=== PATIENT | male | born 1960 | race Caucasian/White ===

== ENCOUNTER 2023-04-10 08:09 | Observation (INO) ==
--- NOTE | 2023-03-18 09:10 | History & Physical Report ---
Date of Service March 18, 2023 date of surgery: 04/10/23 Procedure: Right Total Knee Arthroplasty Surgeon: Mateo Rooney, DO Assessment & Plan (1) Arthritis of right knee: Plan: Patient presents for evaluation of chronic right knee pain, has complaints of pain decreased range of motion intermittent swelling and stiffness. He has undergone previous viscosupplementation, cortisone injection as well as oral anti-inflammatories and Tylenol without improvement. X-rays and MRI were reviewed which show moderate to severe degenerative changes to the right knee greatest patellofemoral joint and medial compartment. We discussed options, he has failed conservative measures at this point would like to proceed with a right total knee arthroplasty. Plan will be patient-matched [employer] right total knee replacement, we will plan on overnight stay at the hospital with discharge home with home health physical therapy. Will place on aspirin 81 mg twice a day for 1 month postop, he otherwise has no other questions or concerns The risks and benefits have been discussed including, but not limited to, risk of infection, nerve injury, stiffness, loss of motion, failure to improve, etc. Reasonable outcomes and options of treatment were discussed. An explanation of appropriate alternatives to the procedure that may be advantageous were discussed and their risks and benefits, as well as the risks and benefits of not proceeding with treatment. I offered to answer any additional inquiries concerning the treatment involved. All the patient's questions were answered. The patient is agreeable, understanding of the treatment plan and alternatives, and wishes to proceed with the treatment plan. History of Present Illness Chief Complaint: Right knee pain Primary Care Provider: Javier Pearson MD Braulio is a pleasant 62-year-old male who presented for preop evaluation prior to right total knee arthroplasty. Braulio has a longstanding history of right knee pain which gradually worsened and is now affecting his daily activities including walking standing using stairs. He rates his current pain as a 7 out of 10. He has tried oral anti-inflammatories, Tylenol as well as corticosteroid injection without relief. At this point time is failed conservative measures and wished to proceed a right total knee replacement Allergies Allergy/AdvReac Type Severity Reaction Status Date / Time bee venom protein (honey bee) Allergy Severe ANAPHYLAXIS Verified 10/26/21 15:33 Home Medications Medication Instructions Recorded Confirmed Type albuterol sulfate 90 mcg/actuation 2 puffs inhalation Q6H PRN 03/12/19 10/23/22 History breath activated powder inhaler Shortness Of Breath gabapentin 300 mg capsule 600 mg PO HS 03/12/19 10/23/22 History metoclopramide HCl 10 mg tablet 10 mg PO DAILY PRN stomach pain 03/12/19 10/23/22 History naproxen 500 mg tablet 500 mg PO BID 03/12/19 10/23/22 History tramadol 50 mg tablet 50 mg PO BID PRN Pain 03/12/19 10/23/22 History amitriptyline 50 mg tablet 50 mg PO HS 03/16/19 10/23/22 History torsemide 20 mg tablet 20 mg PO DAILY 03/25/19 10/23/22 History pantoprazole 40 mg tablet,delayed 40 mg PO BID #180 tabs 05/05/19 10/23/22 Rx release amlodipine 5 mg tablet 5 mg PO DAILY #90 tabs 09/19/21 10/23/22 Rx chlorthalidone 25 mg tablet 25 mg PO DAILY 10/26/21 10/23/22 History Past Med/Surg History Medical History Sleep apnea no machine Chronic obstructive pulmonary disease mild Surgical History History of colonoscopy History of herniorrhaphy bilateral inguinal hernia repair History of cholecystectomy Family History Other No family history of adverse response to anesthesia Denies family history of Crohn's disease Colorectal cancer Ulcerative colitis Social History Smoking Status: Former smoker Second Hand Exposure: Yes (hx); Do You Dip or Chew Tobacco: No; Hx Alcohol Use: No Hx Substance Use: No Preferred Language: Faroese Communication Ability: Effective Visual Impairment: Limited Hearing Ability: Use of Hearing Aid 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 Beliefs That Will Affect Care: None marital status: Single Current Living Situation: Significant Other current occupational status: employed Feels Safe at Home: Yes Childhood Exposure to Second-Hand Smoke: Yes caffeine: Yes during the past year weight has: decreased > 10 lbs Dental Care, Regularly: Yes Physical Activity Frequency: 3-4 Times per Week Seatbelt Use: always Assistive Devices: Denture - Upper, Denture - Lower and Hearing Aid - Bilateral Review of Systems Review of Systems: All systems reviewed & are unremarkable except as noted in HPI & below Constitutional: no fever, no chills and no sweats Respiratory: no cough and no dyspnea Cardiovascular: no chest pain, no dyspnea and no orthopnea Gastrointestinal: no abdominal pain, no nausea and no vomiting Musculoskeletal: as per Subjective / HPI Physical Exam Constitutional: WD/WN, vitals as above no acute distress Respiratory: normal respiratory effort, lungs clear to auscultation no respiratory distress, no labored breathing and does not use accessory muscles Cardiovascular: RRR, no murmur, no edema Gastrointestinal (Abdomen): normal bowel sounds, soft, nontender, no hepatosplenomegaly Musculoskeletal: Knee: + knee abnormal to inspection (RIGHT KNEE), + effusion (+1 effusion), + limited ROM of knee (ROM 0/3/110), + knee ROM with crepitation, + joint line tenderness (medial joint line) and + Karissa's sign positive; no deformity, no skin erythema, no ecchymosis, no valgus laxity, no varus laxity, anterior drawer test negative, Saqib's sign negative and pivot shift test negative Results & Data Results & Data Diagnostic Findings Right Knee X-ray: Right knee series showing advanced degenerative changes to the right knee, narrowing of the medial compartment and patello-femoral joint with patellar spurring noted, findings showing joint space narrowing of the medial compartment and patello-femoral joint, osteophyte formation and subchondral sclerosis noted. overall varus alignment. no acute bony pathology noted.
--- NOTE | 2023-03-21 14:41 | PAT Medication Instructions ---
Medication Instructions Date of Service March 21, 2023 Home Medications albuterol sulfate 90 mcg/actuation breath activated powder inhaler 2 puffs inhalation Q6H PRN gabapentin 300 mg capsule 900 mg PO QPM metoclopramide HCl 10 mg tablet 10 mg PO QD naproxen 500 mg tablet 500 mg PO BID tramadol 50 mg tablet 50 mg PO BID amitriptyline 50 mg tablet 50 mg PO HS chlorthalidone 25 mg tablet 25 mg PO QAM cholecalciferol (vitamin D3) 25 mcg (1,000 unit) capsule (Vitamin D3) 25 mcg PO QAM epinephrine 0.3 mg/0.3 mL injection, auto-injector 0.3 mg IM UD PRN omeprazole 20 mg tablet,delayed release 20 mg PO QAM tamsulosin 0.4 mg capsule 0.4 mg PO UD PRN Continue as directed metoclopramide HCl 10 mg tablet 10 mg PO QD tamsulosin 0.4 mg capsule 0.4 mg PO UD PRN(if needed) epinephrine 0.3 mg/0.3 mL injection, auto-injector 0.3 mg IM UD PRN(if needed) ASK your surgeon for instructions naproxen 500 mg tablet 500 mg PO BID DO NOT take the morning of surgery chlorthalidone 25 mg tablet 25 mg PO QAM cholecalciferol (vitamin D3) 25 mcg (1,000 unit) capsule (Vitamin D3) 25 mcg PO QAM Take morning of surgery With a small sip of water, OTHERWISE NOTHING TO EAT OR DRINK AFTER MIDNIGHT: albuterol sulfate 90 mcg/actuation breath activated powder inhaler 2 puffs inhalation Q6H PRN(use if needed; please bring with you to hospital day of surgery if possible) tramadol 50 mg tablet 50 mg PO BID omeprazole 20 mg tablet,delayed release 20 mg PO QAM Take evening before surgery albuterol sulfate 90 mcg/actuation breath activated powder inhaler 2 puffs inhalation Q6H PRN(if needed) gabapentin 300 mg capsule 900 mg PO QPM tramadol 50 mg tablet 50 mg PO BID amitriptyline 50 mg tablet 50 mg PO HS Other Notes If you have any questions please call us at [phone] or [phone] or [phone] or [phone]
--- NOTE | 2023-03-25 08:23 | Anesthesiology Consultation ---
Date of Service March 25, 2023 Assessment & Plan (1) Encounter for pre-operative examination: - PCP office visit 03/06/23 [facility]: "...got Covid 02/15 and was improving but now has cough and increased mucus...gets short of breath from the cough...bronchitis- prednisone...azithromycin..." - cardiology office visit 09/24/22: "...follow up for dyspnea...dyspnea has improved...edema and BP improved...ascending aortic aneurysm has been stable on CT. No other significant cardiac hx. Edema and BP have improved...no changes today. RTC in 1 year..." - Outpatient joint assessment: Patient is currently scheduled for inpatient pathway. If re-evaluated and patient/surgeon requests outpatient pathway, patient is not recommended candidate for outpatient joint program from anesthesia standpoint. Chart Review Chart Review: Acceptable Risk for Surgery and Patient seen in Pre Admission Testing Teaching & Discussion Pre-Anesthesia Teaching/Discussion Notes: Instructed NPO after midnight before surgery, except medications with 15 cc of water. Medication instructions provided according to the PAT guidelines. History Surgery Operation Date: 04/10/23 11:00 Proposed Procedures p Right Total Knee Arthroplasty - Mateo Rooney DO Height/Weight Height: 5 ft 8 in Weight: 121.4 kg Allergies Allergy/AdvReac Type Severity Reaction Status Date / Time bee venom protein (honey bee) Allergy Severe ANAPHYLAXIS Verified 03/20/23 15:46 Medications Home Medications Medication Instructions Recorded Confirmed Last Taken albuterol sulfate 90 mcg/actuation 2 puffs inhalation Q6H PRN copd 03/12/19 03/20/23 01/20/19 breath activated powder inhaler gabapentin 300 mg capsule 900 mg PO QPM 03/12/19 03/20/23 07/13/20 metoclopramide HCl 10 mg tablet 10 mg PO QDD gerd 03/12/19 03/20/23 03/24/19 naproxen 500 mg tablet 500 mg PO BID 03/12/19 03/20/23 07/14/20 08:00 tramadol 50 mg tablet 50 mg PO BID Pain 03/12/19 03/20/23 07/14/20 08:00 amitriptyline 50 mg tablet 50 mg PO HS 03/16/19 03/20/23 07/13/20 chlorthalidone 25 mg tablet 25 mg PO QAM 10/26/21 03/20/23 Unknown cholecalciferol (vitamin D3) 25 25 mcg PO QAM 03/20/23 03/20/23 Unknown mcg (1,000 unit) capsule (Vitamin D3) epinephrine 0.3 mg/0.3 mL 0.3 mg IM UD PRN bee stings 03/20/23 03/20/23 Unknown injection, auto-injector omeprazole 20 mg tablet,delayed 20 mg PO QAM 03/20/23 03/20/23 Unknown release tamsulosin 0.4 mg capsule 0.4 mg PO UD PRN Urinary Retention 03/20/23 03/20/23 Unknown Past Medical History Medical History (Updated 03/25/23 @ 08:45 by Mariana Ho PA-C) Aortic aneurysm monitoring. Chronic obstructive pulmonary disease mild-last rescue inhaler use 1 yr ago GERD (gastroesophageal reflux disease) controlled, stable per pt History of anesthesia reaction after gallbladder surgery, hard time peeing in recovery, once able to go - could not stop flow-denies requiring catheterization History of COVID-2020 & Jan 19 2023 + home - headache, coughing, cold s/s. denies hospitalization-residual occasional cough productive of yellow-green sputum--follows with PCP History of Lyme disease several yrs ago-denies residual symptoms History of shingles left facial-Nov or Dec 2022. lesions healed. Scarring remains. HTN (hypertension) controlled, stable per pt Peripheral neuropathy hands and feet RLS (restless legs syndrome) Sleep apnea can't tolerate cpap SOB (shortness of breath) on exertion stairs-ongoing since having COVID in 2020-notes some gradual improvement Urinary frequency ongoing / nothing new. Patient denies h/o stroke, seizures, heart attack, heart failure, DM, blood clots/DVTs or blood transfusions. Exercise / Class Metabolic Activity II 4-5 Yardwork/Stairs/Walk up hill (SOB with 1 FOS, ongoing since 2020 COVID illness-notes improvement since onset-denies chest discomfort) Past Family History Family History Other No family history of adverse response to anesthesia Denies family history of Crohn's disease Colorectal cancer Ulcerative colitis Past Surgical History Surgical History History of cholecystectomy History of colonoscopy History of herniorrhaphy bilateral inguinal hernia repair Past Anesthesia History No Family Hx of Anesthesia Complications and Other (post-op urinary retention) History of PONV No Hx of PONV and No Hx of Motion Sickness Social History Smoking Status: Former smoker tobacco type: cigarettes Do You Dip or Chew Tobacco: No Smoking End Date: 20 + yr ago Hx Alcohol Use: No Hx Substance Use: No substance use type: does not use Review of Systems Patient denies chest pain, fever, chills, wheezing, or palpitations. Physical Exam Vital Signs Vitals BP 135/90 P 76 TEMP 98.2 SP02 96% on RA RESP 17 Physical Patient resting comfortably in chair in no acute distress, alert and oriented, responding appropriately throughout visit Full cervical extension range of motion without pain TMD < 3 finger breadths Mallampati Score 3 Dentition: edentulous-full upper and lower dentures Lungs: normal respiratory effort. Good air movement, clear throughout to auscul tation, no adventitious breath sounds Cardiac: regular rate and rhythm, no murmurs noted Carotid arteries: negative bruit bilat Lab Results Anesthesia Preop Results Results Anesthesia Widget: WBC 10.12 K/ul (4.8-10.8) 03/25/23 Hgb 15.8 g/dl (14.0-18.0) 03/25/23 Hct 45.3 % (42.0-52.0) 03/25/23 Plt 145 K/uL (130-400) 03/25/23 Na 136 mmol/L (136-145) 03/25/23 K 3.7 mmol/L (3.5-5.1) 03/25/23 Cl 99 mmol/L (98-107) 03/25/23 CO2 31 mmol/L (21-32) 03/25/23 BUN 23 mg/dl (6-23) 03/25/23 Creat 0.93 mg/dl (0.6-1.4) 03/25/23 Glucose Level 113 mg/dl (70-99(Fasting)) H 03/25/23 PT 10.3 Seconds (9.0-12.0) 03/25/23 PTT 28 Seconds (21-31) 03/25/23 INR 0.9 (0.9-1.1) 03/25/23 HA1c 6.0 % (4.5-5.6) H 03/25/23 Urine Color Yellow 03/25/23 Urine Appearance Clear (Clear) 03/25/23 Urine pH 5.0 (4.5-7.5) 03/25/23 Urine Specific [place] 1.019 (1.000-1.030) 03/25/23 Urine Protein Negative (Negative) 03/25/23 Urine Glucose (UA) Negative (Negative) 03/25/23 Urine Ketones Negative (Negative) 03/25/23 Urine Blood Negative (Negative) 03/25/23 Urine Nitrite Negative (Negative) 03/25/23 Urine Bilirubin Negative (Negative) 03/25/23 Urine Urobilinogen Negative (Negative) 03/25/23 Urine Leukocyte Esterase Negative (Negative) 03/25/23 Blood Type B Negative 03/25/23 Antibody Screen NEGATIVE 03/25/23 Testing Electrocardiogram Date: 09/20/22 NSR, rate 71 bpm Chest X-Ray Date: 03/25/23 No acute cardiopulmonary findings. Echocardiogram Date: 09/02/20 EF > 60% No significant valvular pathology Stress Test Date: 07/20/21 Exercise MPHR 94% METS 6 Negative test EF 55-60% No LV regional wall motion abnormalities Severe cLVH No significant valvular abnormalities
[~2023-04-10 08:09] MED LIST: BUPIVACAINE 0.25% PF 30 ML VIAL ONE; BUPIVACAINE 0.5 % 5 MG/1 ML PF 10ML VIAL ONE; DEXAMETHASONE SOD INJ 4 MG/ML VIAL ONE; General Order Problem(s) SCH; LIDOCAINE 2% 2 ML VIAL/AMP(20MG/ML) INFIL ONE; ONDANSETRON INJ 2 MG/ML 2 ML VIAL ONE; PROPOFOL IV EMULSION 10 MG/ML 20 ML VIAL IV ONE
[2023-04-10] MEDS: LR 500ML BOLUS, THEN 15ML/HR IV SCH (08:30)
[2023-04-10] MEDS ORDERED: PROPOFOL IV EMULSION 10 MG/ML 100 ML VIAL IV ONE (08:33)
[2023-04-10] MEDS ORDERED: fentaNYL citrate PF 100 MCG/2 ML VIAL ONE (08:34)
[2023-04-10] MEDS ORDERED: MIDAZOLAM HCL 1 MG/ML 2ML VIAL ONE (08:34)
--- NOTE | 2023-04-10 08:42 | History & Physical Bridge Note ---
Date of Service April 10, 2023 History & Physical Bridge Note I have examined the patient, reviewed the History & Physical and in the interval since the performance of the History & Physical I have noted the following changes of clinical significance: no changes noted
[2023-04-10] MEDS: LR 60ML/HR IV SCH ×2 (08:49)
[2023-04-10] MEDS: ACETAMINOPHEN 500 MG TAB PO SCH ×2 (08:50→15:14)
[2023-04-10] MEDS: GABAPENTIN 300 MG CAP PO SCH ×2 (08:50→19:45)
[2023-04-10] MEDS: FAMOTIDINE 20 MG TAB PO SCH (08:50)
[2023-04-10] MEDS: METOCLOPRAMIDE HCL 10 MG TABLET PO SCH (08:50)
[2023-04-10] MEDS: CeleBREX 200 MG CAP PO SCH (08:50)
[2023-04-10] MEDS ORDERED: ATROPINE SULFATE 0.1 MG/ML 10ML SYR IV PRN (09:23)
[2023-04-10] MEDS ORDERED: ePHEDrine sulfate 50 MG/ML AMP IV PRN (09:23)
[2023-04-10] MEDS ORDERED: fentaNYL citrate PF 100 MCG/2 ML VIAL IV PRN (09:23)
[2023-04-10] MEDS: TRANEXAMIC ACID 1,000 MG **IV Pre-op IV SCH (09:41)
--- OUTSIDE RECORDS SUMMARY | 2023-04-10 10:05 | External Medical Summary | Summary of Care ---
Author Name Unknown Organization [facility] Address [address] [place] [address] Phone [phone] Care Team Providers Care Project Leader Name Role Phone Javier Pearson MD Primary Care Provider Encounter Details Date Type Department Care Team (Late st Contact Info) Description 03/15/2023 Telephone Gastroenterology, [facility] [address] [facility] [place] [address] Services, Scheduling [address] [place] [address] Allergies Active Allergy Reactions Criticality Noted Date Comments Bee Venom 04/14/2014 documented as of this encounter (statuses as of 03/26/2023) Medications Medication Sig Dispensed Refills Start Date End Date Status EPI E-Z PEN [place] 1:1000 IJIndications:Toxic effect of venom(989.5) DIRECTED 2 Pen 1 08/21/2011 Active torsemide (DEMADEX) 20 MG TabletIndications:P edal edema take 1 tablet by mouth once daily if needed 90 Tab 1 04/03/2018 Active amitriptyline (ELAVIL) 50 MG TabletIndications:L ow back pain radiating to both legs,Cervicalgia,Re stless legs Take 1 Tab by mouth at bedtime. 90 Tab 1 08/29/2018 Active traMADol (ULTRAM) 50 MG TabletIndications:L ow back pain radiating to both legs Take 1 Tab by mouth every 6 hours as needed for Pain. 60 Tab 0 08/29/2018 Active gabapentin (NEURONTIN) 300 MG CapsuleIndications: Restless legs One or two capsules at bedtime 180 Cap 1 08/29/2018 Active Additional Information Patient taking differently: 900 mg a day, Reported on 08/08/2022 metoclopramide (REGLAN) 10 MG TabletIndications:G astroesophageal reflux disease with esophagitis take 1 tablet by mouth once daily BEFORE SUPPER 90 Tab 1 08/29/2018 Active naproxen (NAPROSYN) 500 MG TabletIndications:L ow back pain radiating to both legs Take 1 Tab by mouth 2 times a day as needed for Pain. With food 180 Tab 1 08/29/2018 Active Chlorthalidone 25 MG Oral Tablet (Hygroton) Take 1 Tablet by mouth in the morning. 0 Active Meclizine HCl 12.5 MG Oral Tablet (Antivert) Take 1 Tablet by mouth 3 times a day as needed. 0 10/28/2022 Active Promethazine HCl 25 MG Oral Tablet (Phenergan)Indicati ons:Herpes zoster with complication Take 1 Tablet by mouth every 6 hours as needed for Nausea. or vomiting 12 Tablet 0 11/01/2022 Active Omeprazole 20 MG Oral Capsule Delayed Release (PriLOSEC) Take 1 Capsule by mouth in the morning. 30 Capsule 3 01/07/2023 Active documented as of this encounter (statuses as of 03/26/2023) Active Problems Problem Noted Date Diagnosed Date Arthritis of knee, right 03/06/2023 BMI 37.0-37.9, adult 10/12/2021 Overview: 254 Metabolic syndrome 08/08/2020 Overview: [id number] 6.4/134 Polyneuropathy in other diseases classified else where 07/13/2020 COPD, moderate 12/07/2010 Dyslipidemia, goal LDL below 130 11/30/2010 ADVANCE DIRECTIVE INFORMATION 09/13/2006 Overview: No, Advance Directive brochure offered , patient declined. erectile dysfunction 06/26/2004 FAM HX-DIABETES MELLITUS 01/12/2002 MEDICATION USE AGREEMENT Gastroesophageal reflux dise ase with esophagitis without hemorrhage Low back pain radiating to both legs documented as of this encounter (statuses as of 03/26/2023) Resolved Problems Problem Noted Date Diagnosed Date Resolved Date Low back pain radiating to both legs 02/04/2012 07/17/2017 OBESITY, BMI 30-34 (SEE ACTUAL BMI) 05/26/2009 12/30/2013 Overview: Per Obesity Taxonomy Dyslipidemia, goal to be determined 09/27/2006 11/30/2010 COPD, severity to be determined 07/24/2000 12/07/2010 Chronic rhinitis 07/24/2000 07/17/2017 OBESITY, UNSPECIFIED 07/24/2000 010 Overview: Per Obesity Taxonomy BMI 35.0-35.9,adult 07/13/19 16 BMI 39.0-39.9,adult 02/15/20 17 Overview: Per Obesity protocol #1 Cough 07/17/2017 Morbid obesity 07/25/2017 documented as of this encounter (statuses as of 03/26/2023) Immunizations Name Administration Dates Next Due COVID-19, mRNA, LNP-s, PF, B ooster, 100mcg/0.5mg (Moderna) 03/13/2021,09/08/2020,08/08/2020 Pneumococcal Conjugate Vacci ne, 20-valent ([id number]) 02/07/2022 Pneumococcal Polysaccharide PPV23 (Pneumovax) 12/16/2012 Seasonal Influenza Virus Vac cine, Unspecified Formulation 11/02/2017 Seasonal Influenza, PF, 6 M & above, IM , (FluLaval or Fluzone) 03/06/2023,01/02/2022,02/08/2021,01/05,01/29/2018,01/16/2017 Seasonal Influenza, Quadriva lent, No Preserve, IM 11/16/2019,02/01/2016,01/12/2015 Seasonal Influenza, Split, I IV3, With Preserve, Inj 01/04/2014,12/16/2012,01/17/2012,11/30 TDAP (age 10 and older)(Boostrix) 07/30/2018 TDAP (age 11 and older)(Adacel) 10/02/2007 documented as of this encounter Social History Tobacco Use Types Packs/Day Years Used Date Smoking Tobacco: Former Cigarettes Q uit: 03/04/2004 Smokeless Tobacco: Never Comments:quit 11 yr ago Alcohol Use Standard Drinks/Week Comments No 0 (1 standard drink = 0.6 oz pur e alcohol) has been sober 10yr PHQ-2 Answer Date Recorded PHQ-2 Score 0 07/30/2018 Sex and Gender Information Value Date Recorded Sex Assigned at Not on file Gender Identity Not on file Sexual Orientation Not on file Job Start Date Occupation Industry Not on file Not on file Not on file documented as of this encounter Miscellaneous Notes * Telephone Encounter - Yudelka Dick OSA - 03/15/2023 10:49 AM EST Called patient to make aware appt cancelled on 04/22 and with Brianna Mota patient will need to be rescheduled. Thank you documented in this encounter Plan of Treatment Upcoming Encounters Date Type Department Care Team (Late st Contact Info) Description 07/04/2023 2:00 PM EDT Office Visit Gastroenterology, [facility] [address] [place] [address] Brianna Mota CRNP [address] [place] [id number] 10/23/2023 3:40 PM EDT Office Visit Family Medicine [address] [place] [phone] Cinthya Roberts MD [address] [place] [address] [place] [address] Scheduled Procedures Name Priority Associated Diagnoses Date/Ti me COLONOSCOPY FLEXIBLE PROXIMAL DIAGNOSTIC Recall Colon cancer screening Health Maintenance Due Date Last Done Comments HIV Screening 09/01/1974 Alpha-1 Antitrypsin 09/01/1977 Cologuard 09/01/2004 Fecal Occult Blood Test 09/01/2004 Sigmoidoscopy 09/01/2004 Zoster Vaccines (1 of 2) 09/01/2009 Depression Screening 07/31/2019 07/30/2018 COVID-19 Vaccine ( season) 2022 03/13/2021, 09/08/2020, 08/08/2020 Lipid Panel 02/13/2024 02/12/2019, 01/02, 12/26/2012, Additional history exists O2 ASSESSMENT COMPLETED IN PAST YEAR FOR COPD 03/06/2024 03/06/2023 Diabetes Screening 10/27/2025 10/27/2022, 1 04/10/2021, 01/21/2022, Additional history exists Colonoscopy 12/31/2026 12/31/2016, 12/04, 04/23/2011 Colorectal Cancer Screening 12/31/2026 DTaP,Tdap,and Td Vaccines (3 - Td or Tdap) 07/30/2028 07/30/2018, 10/02/2007 Pneumococcal Vaccine: Pediatrics (0 to 5 Years) and At-Risk Patients (6 to 64 Years) Completed 02/07/2022, 12/16/2012 Influenza Vaccine (FLU shot) Completed 05/2023, 01/02/2022, 02/08/2021, Additional history exists GARDASIL-HPV IMMUNIZATION SERIES Aged Out No longer eligible based on patient's age to complete this topic Hepatitis B Aged Out No longer eligi ble based on patient's age to complete this topic MENINGOCOCCAL (MENACTRA/MENVEO) Aged Out No longer eligible based on patient's age to complete this topic documented as of this encounter Medical Devices Not on filedocumented as of this encounter Advance Directives Latest Code Status on File Code Status Date Activated Date Inactivated Comments Full Code 03/20/2019 10:15 AM 03/20/2019 3:09 PM This order reflects the patients wishes and were consensually agreed upon. Question Answer Comments Discussion of Advance Directives occurred with: Patient Does the patient have a Living Will? No Does the patient have Health Care Power of Equine Internship? No Care Teams Project Leader Relationship Specialty Start Date End Date Javier Pearson MD [address] [place] [address] [place] [id number] PCP - General Family Medicine 07/17/17 documented as of this encounter
[2023-04-10] MEDS: ORTHO JOINT ANESTHETIC ONE (10:33)
[2023-04-10] MEDS: TRANEXAMIC ACID 1,000 MG **IV Intra-op IV SCH (11:06)
--- NOTE | 2023-04-10 11:06 | Operative Report ---
Post Operative Report Pre & Post Diagnosis Operation Date: 04/10/23 10:00 Pre-Op Diagnosis: Osteoarthritis Knee Right Post-Op Diagnosis: Osteoarthritis Knee Right I identified the patient and participated in the time-out.: Yes Procedure Operation Date: 04/10/23 10:00 Actual Procedures p Right Total Knee Arthroplasty utilizing Hernandez & NephInfoharmoni jourtaylor 2 patient- matched total knee arthroplasty size femur 6 tibia 5 poly 13 patella 29 yaakov Rooney DO Surgeon Mateo Rooney DO Mixed Animal Veterinarian David YANG Estimated Blood Loss 5 Findings Consistent with Post-Op Diagnosis Patient presents with severe end-stage tricompartmental DJD of the right knee nonresponse to conservative management patient has varus alignment subchondral sclerosis marginal osteophytes moderate to large effusion eburnated [id number] with subchondral cystic changes Specimens Bone card Drains Medium bore Hemovac Anesthesia Type MAC Spinal Regional Complications none Disposition Accompanied Patient To Recovery: No Disposition: Recovery Room Indications Patient presents severe end-stage DJD having failed attempts at conservative management occluding physical therapy anti-inflammatories relative rest activity modification corticosteroid injection viscosupplementation above intraoperative findings were noted Description of Procedure After proper prepping and draping of the Right lower extremity anterior midline incision was made over the region of the extensor extensor mechanism after meticulous hemostasis was obtained and maintained in subcutaneous tissues a medial parapatellar incision was made The patella was subluxed lateralward the medial lateral gutter were cleaned from any hypertrophic synovitis and scar tissue of the distal femoral block was placed and the distal femoral osteotomy cut was made subsequently the chamfers anterior and posterior osteotomy cuts were made utilizing the 4-in-1 block the tibia was subsequently subluxed anteriorward medial and ateral meniscal remnants were excised in their entirety remnants of the anterior and posterior cruciate ligaments were excised in their entirety excellent exposure of the proximal tibia was obtained the tibial osteotomy guide was placed on the proximal tibial osteotomy cut was made once again the knee was irrigated with copious amounts of sterile saline solution the patella was subsequently everted lateralward thickened scar tissue around the patella was removed the patella was subsequently cut utilizing a freehand techn ique and was drilled prepared for final preparation and placement of patella socially flexion-extension gaps were checked and the equal and symmetric trials were placed to the appropriate femoral and tibial trials with poly-spacer being placed for equal flexion and extension gaps and full range of motion including extension to 0 and flexion to 140 the trial components after having been taken to recovery range of motion was subsequently removed meticulous hemostasis was obtained and maintained subsequently a knee block injection of joint cocktail including ropivacaine 0.5% 150 mg. Bupivacaine 0.5% epinephrine 1-200,030 mL's toradol 30 mg dexamethasone 4 mg ketamine 10 mg clonidine 100 micrograms normal saline solution 30 mg was infiltrated into the soft tissues of the posterior knee medial lateral gutters and periosteal synovium special attention was paid to protect neurovascular structures at all times subsequently trial components having been removed the knee was irrigated with sterile saline solution. debris was removed the proximal tibia was subsequently prepared and was made ready for the placement of the tibial component tibial component was also cemented and tamped into position the femoral component was subsequently placed and cemented in the position the patellar component was subsequently cemented in position because hemostasis once again obtained and maintained wound having been thoroughly irrigated with debridement and debridement lavage was performed as well as a medial parapatellar incision closed with #1 Vicryl in interrupted fashion subcutaneous was closed with #2 Vicryl skin was closed with skin clips. PA-C was necessary for prepping and drapping as well as wound closure of deep fascia Sub cutaneous tissue and skin and was necessary for the case. A sterile compressive dressing was placed patient was taken to recovery in stable condition of report dictated by Toribio I attest to the content of the Intraoperative Record and any orders documented therein. Any exceptions are noted below.Due to the complex nature of the procedure, the entire surgery was performed with the operational assistance of David YANG. The office assistant, under direct supervision, was involved in the actual performance of all aspects of the surgical procedure including hemostasis, tissue retraction and incision, instrument management, patient positioning, and wound closure. I attest to the content of the Intraoperative Record and any orders documented therein. Any exceptions are noted below.
[2023-04-10] MEDS: ROPIV 0.5% 246mg, Ketorolac 30mg, EPINEPHrine 0.5mg in NSS INFIL SCH (11:07)
[2023-04-10] MEDS ORDERED: PROPOFOL IV EMULSION 10 MG/ML 20 ML VIAL IV ONE (11:23)
[2023-04-10] MEDS ORDERED: ONDANSETRON INJ 2 MG/ML 2 ML VIAL ONE (11:24)
[2023-04-10] MEDS: ONDANSETRON INJ 2 MG/ML 2 ML VIAL IV PRN (12:09)
--- NOTE | 2023-04-10 12:15 | Anesthesiology Progress Note ---
Date of Service April 10, 2023 Anesthesia Post Procedure Vital Signs Vital Signs: Temp Pulse Resp BP Pulse Ox O2 Del Method O2 Flow Rate 04/10/23 12:10 78 17 123/89 94 Oxymask 0 04/10/23 12:00 85 17 103/80 94 Oxymask 2 04/10/23 11:50 77 12 118/76 94 Oxymask 8 04/10/23 11:44 36.2 C L 81 14 113/76 94 Oxymask 8 04/10/23 08:25 36.8 C 87 20 129/104 H 93 Room Air Pain Intensity Right Knee: Pain Intensity: 5 Transfer of Care Handoff Completed per policy Notes Mental Status: alert / awake / arousable and participated in evaluation Patient Amnestic to Procedure: Yes Nausea / Vomiting: adequately controlled Pain: adequately controlled Airway Patency, RR, SpO2: stable & adequate BP & HR: stable & adequate Hydration State: stable & adequate Neuraxial Anesthesia: was administered and sensory block is resolving Anesthetic Complications: no major complications apparent and Pt Satisfied with anesthetic care
--- NOTE | 2023-04-10 12:18 | XRay Report ---
XR knee RT 1 or 2V routine HISTORY: 62 years-old Male Surgical Post Op right knee arthroplasty COMPARISON: None TECHNIQUE: 2 views of the right knee FINDINGS: Total joint arthroplasty with patellar resurfacing. A surgical drainage catheter is in place along wi th expected postoperative soft tissue swelling with deep tissue air. No acute fracture, dislocation o r unexpected opaque foreign body. IMPRESSION: Total joint arthroplasty with expected postoperative changes. ACT 112: Negative or not required by law. The above report was generated using voice recognition software. It may contain grammatical, syntax o r spelling errors. Electronically signed by: Dhiraj Rutherford M.D. 04/10/2023 12:17 PM
[2023-04-10] MEDS ORDERED: bisacodyL 10 MG SUPP PR PRN (13:20)
[2023-04-10] MEDS ORDERED: diphenhydrAMINE 50 MG/ML VIAL IV PRN (13:20)
[2023-04-10] MEDS ORDERED: METOCLOPRAMIDE HCL INJ 5 MG/ML 2 ML VIAL IV PRN (13:20)
[2023-04-10] MEDS ORDERED: MAGNESIUM HYDROXIDE SUSP 30 ML UDC PO PRN (13:20)
[2023-04-10] MEDS ORDERED: NALOXONE HCL 0.4 MG/1 ML VIAL/CARP IV PRN (13:20)
[2023-04-10] MEDS ORDERED: TAMSULOSIN HCL 0.4 MG CAP PO PRN (13:20)
[2023-04-10] MEDS ORDERED: ONDANSETRON INJ 2 MG/ML 2 ML VIAL IV PRN (13:20)
[2023-04-10] MEDS ORDERED: HYDROmorphone INJ 0.5 MG/0.5 ML SYR IV PRN (13:20)
[2023-04-10] MEDS: SODIUM CHLORIDE 0.9% 1,000 ML IV SCH (13:41)
[2023-04-10] MEDS ORDERED: ALBUTEROL HFA 8 GM INHALER INH PRN (13:42)
[2023-04-10] MEDS: oxyCODONE HCL IR 5 MG TAB (IMMEDIATE RELEASE) PO PRN (15:14)
[2023-04-10] MEDS: ceFAZolin 2000MG 2,000 MG/15 ML SYR IV SCH (17:27)
[2023-04-10] MEDS: ASPIRIN 81 MG ECTAB PO SCH (19:44)
[2023-04-10] MEDS: DOCUSATE SODIUM 100 MG CAP PO SCH (19:45)
[2023-04-10] MEDS: SENNA 8.6 MG TAB PO SCH (19:46)
[2023-04-11 06:56] LABS: Hemoglobin 14.2 g/dl (14.0-18.0); Mean Corpuscular Hemoglobin 29.1 pg (25.0-34.0); Mean Corpuscular Hgb Conc 33.8 g/dL (32.0-36.0); Mean Corpuscular Volume 86.1 fL (80.0-100.0); Mean Platelet Volume 9.8 fL (9.4-12.4); Platelet Count 229 K/uL (130-400); RDW Coefficient of Variation 13.6 % (11.5-14.5); RDW Standard Deviation 42.3 fL (36.4-46.3); Red Blood Count 4.88 M/uL (4.70-6.10); White Blood Count 13.61 K/ul (4.8-10.8)
--- NOTE | 2023-04-11 06:56 | Orthopedic Progress Note ---
Date of Service April 11, 2023 Assessment & Plan (1) History of total right knee replacement: Plan: POD #1 s/p Right TKA pt/ot dvt proph with SUSAN/SCD/ASA plan for d/c home with HHPT when stable Admission and Anticipated Discharge Date Admission Date: April 10, 2023 Subjective POD #1 s/p Right TKA Review of Systems Constitutional: no fever, no chills and no sweats Respiratory: no cough and no dyspnea Cardiovascular: no chest pain and no dyspnea Gastrointestinal: no abdominal pain, no nausea and no vomiting Physical Exam Physical Exam: Vital Signs Temp 37.2 C 04/11/23 04:23 Pulse 82 04/11/23 04:23 Resp 18 04/11/23 04:23 BP 134/76 04/11/23 04:23 Pulse Ox 96 04/11/23 04:23 O2 Del Method Room Air 04/11/23 04:23 O2 Flow Rate 2 04/10/23 15:22 Intake & Output 04/10/23 04/10/23 04/11/23 06:59 18:59 06:59 Intake Total 2217.5 / 3172.5 955 / 3172.5 Output Total 215 / 2415 2200 / 2415 Balance 2002.5 / 757.5 -1245 / 757.5 Weight 117.9 kg Intake: IV 317.5 / 1272.5 955 / 1272.5 Lactated Ringe r's 1,000 ml @ 15 0 / 0 mls/hr IV .Q24 H EVELIO Rx#: [id number] Sodium Chlorid e 0.9% 1,000 ml @ 45 / 1000 955 / 1000 100 mls/hr IV .Q10H EVELIO Rx#: [id number] Tranexamic Aci d / 0.7% NaCl 1, 200 / 200 000 mg In 100 ml @ 600 mls/hr IV TODAY@0600 EVELIO Rx#:[id number] ceFAZolin 3000 MG 72.5 ml @ 130 72.5 / 72.5 mls/hr IV PREO P EVELIO Rx#: [id number] IV Perioperative 1700 / 1700 Oral 200 / 200 Output: Urine 100 / 2300 2200 / 2300 Estimated Blood Loss 5 / 5 Drain Output 110 / 110 Right Knee Hem ovac #1 110 / 110 Other: Weight Measureme nt Method Standing Scale Musculoskeletal: Right Leg: NVDI, calf SNT, negative reji sign. DP palpable, able to wiggle toes/ankle movement without difficulty. dressing clean dry and intact. Results & Data Vital Signs (Past 12 Hours) Vital Signs Temp Pulse Resp BP Pulse Ox O2 Del Method 04/11/23 04:23 37.2 C 82 18 134/76 96 Room Air 04/10/23 22:40 36.8 C 77 18 134/83 96 Room Air 04/10/23 19:45 Room Air 04/10/23 19:27 36.8 C 75 18 152/102 H 96 Room Air Laboratory Results Impressions Knee X-Ray 04/10/23 11:48 XR knee RT 1 or 2V routine HISTORY: 62 years-old Male Surgical Post Op right knee arthroplasty COMPARISON: None TECHNIQUE: 2 views of the right knee FINDINGS: Total joint arthroplasty with patellar resurfacing. A surgical drainage catheter is in place along with expected postoperative soft tissue swelling with deep tissue air. No acute fracture, dislocation or unexpected opaque foreign body. IMPRESSION: Total joint arthroplasty with expected postoperative changes. ACT 112: Negative or not required by law. The above report was generated using voice recognition software. It may contain grammatical, syntax or spelling errors. Electronically signed by: Dhiraj Rutherford M.D. 04/10/2023 12:17 PM
[2023-04-11 07:05] LABS: BUN Creatinine Ratio 16.8 (10-20); Calcium 8.2 mg/dl (8.6-10.3); Creatinine Clr Calc Pharmacy 93.4 ml/min; Est GFR (African American) 91.3 ml/min; Est GFR (Non-African American) 78.8 ml/min; Potassium 3.4 mmol/L (3.5-5.1)
[2023-04-11] MEDS: PANTOprazole 40 MG TAB PO SCH (08:07)
[2023-04-11] MEDS: MULTIVITAMIN TAB PO SCH (08:07)
[2023-04-11] MEDS: CHOLECALCIFEROL 25 MCG (1000 UNITS) TAB PO SCH (08:07)
[2023-04-11] MEDS: CHLORTHALIDONE 25 MG TAB PO SCH (08:07)
--- NOTE | 2023-04-11 12:38 | Discharge Summary ---
Date of Service April 11, 2023 Admission HPI Per Admitting Provider Kaley is a pleasant 62-year-old male who presented for preop evaluation prior to right total knee arthroplasty. Kaley has a longstanding history of right knee pain which gradually worsened and is now affecting his daily activities including walking standing using stairs. He rates his current pain as a 7 out of 10. He has tried oral anti-inflammatories, Tylenol as well as corticosteroid injection without relief. At this point time is failed conservative measures and wished to proceed a right total knee replacement Admission Exam Per Admitting Provider Physical Exam Constitutional: WD/WN, vitals as above no acute distress Respiratory: normal respiratory effort, lungs clear to auscultation no respiratory distress, no labored breathing and does not use accessory muscles Cardiovascular: RRR, no murmur, no edema Gastrointestinal (Abdomen): normal bowel sounds, soft, nontender, no hepatosplenomegaly Musculoskeletal: Knee: + knee abnormal to inspection (RIGHT KNEE), + effusion (+1 effusion), + limited ROM of knee (ROM 0/3/110), + knee ROM with crepitation, + joint line tenderness (medial joint line) and + Karissa's sign positive; no deformity, no skin erythema, no ecchymosis, no valgus laxity, no varus laxity, anterior drawer test negative, Saqib's sign negative and pivot shift test negative Principal Diagnosis Right Knee Djd Discharge Data Allergies Allergy/AdvReac Type Severity Reaction Status Date / Time bee venom protein (honey bee) Allergy Severe ANAPHYLAXIS Verified 04/10/23 08:18 Procedures Performed Operation Date: 04/10/23 10:00 Actual Procedures p Right Total Knee Arthroplasty(Right) - Mateo Dc DO Ordered Studies 04/10/23 05:00 US - OR guided needle placemen Routine Hospital Course (1) History of total right knee replacement: Patient: KALEY JACKSON Admit Date: 04/10/23 MR#: [id number] [facility] Phy: Mateo Dc,D.O. Acct ID: [id number] Re[facility] Phy: Javier Pearson MD Date: 1960 Fam Phy: Age: 62 Location: 3E Sex: M Room/Bed: [facility] cc: ~ *NOTICE TO RECEIVING [employer]/AGENCY This information is strictly Confidential and protected under [place] law. [place] law prohibits you from making any further disclosure of this information unless further disclosure is expressly permitted by the written consent of the person to whom it pertains or is authorized by law. A general authorization for the release of medical or other information is not sufficient for this purpose. Hospital accepts no res ponsibility if the information is made available to any other person, INCLUDING THE PATIENT. Date of Service April 11, 2023 Assessment & Plan (1) History of total right knee replacement: Plan: POD #1 s/p Right TKA pt/ot dvt proph with SUSAN/SCD/ASA plan for d/c home with HHPT when stable Admission and Anticipated Discharge Date Admission Date: April 10, 2023 Subjective POD #1 s/p Right TKA Review of Systems Constitutional: no fever, no chills and no sweats Respiratory: no cough and no dyspnea Cardiovascular: no chest pain and no dyspnea Gastrointestinal: no abdominal pain, no nausea and no vomiting Physical Exam Physical Exam: Vital Signs Temp 37.2 C 04/11/23 04:23 Pulse 82 04/11/23 04:23 Resp 18 04/11/23 04:23 BP 134/76 04/11/23 04:23 Pulse Ox 96 04/11/23 04:23 O2 Del Method Room Air 04/11/23 04:23 O2 Flow Rate 2 04/10/23 15:22 Intake & Output 04/10/23 04/10/23 04/11/23 06:59 18:59 06:59 Intake Total 2217.5 / 3172.5 955 / 3172.5 Output Total 215 / 2415 2200 / 2415 Balance 2002.5 / 757.5 -1245 / 757.5 Weight 117.9 kg Intake: IV 317.5 / 1272.5 955 / 1272.5 Lactated Ringe r's 1,000 ml @ 15 0 / 0 mls/hr IV .Q24 H EVELIO Rx#: [id number] Sodium Chlorid e 0.9% 1,000 ml @ 45 / 1000 955 / 1000 100 mls/hr IV .Q10H EVELIO Rx#: [id number] Tranexamic Aci d / 0.7% NaCl 1, 200 / 200 000 mg In 100 ml @ 600 mls/hr IV TODAY@0600 EVELIO Rx#:[id number] ceFAZolin 3000 MG 72.5 ml @ 130 72.5 / 72.5 mls/hr IV PREO P EVELIO Rx#: [id number] IV Perioperative 1700 / 1700 Oral 200 / 200 Output: Urine 100 / 2300 2200 / 2300 Estimated Blood Loss 5 / 5 Drain Output 110 / 110 Right Knee Hem ovac #1 110 / 110 Other: Weight Measureme nt Method Standing Scale Musculoskeletal: Right Leg: NVDI, calf SNT, negative reji sign. DP palpable, able to wiggle toes/ankle movement without difficulty. dressing clean dry and intact. Results & Data Vital Signs (Past 12 Hours) Vital Signs Temp Pulse Resp BP Pulse Ox O2 Del Method 04/11/23 04:23 37.2 C 82 18 134/76 96 Room Air 04/10/23 22:40 36.8 C 77 18 134/83 96 Room Air 04/10/23 19:45 Room Air 04/10/23 19:27 36.8 C 75 18 152/102 H 96 Room Air Laboratory Results Impressions Knee X-Ray 04/10/23 11:48 XR knee RT 1 or 2V routine HISTORY: 62 years-old Male Surgical Post Op right knee arthroplasty COMPARISON: None TECHNIQUE: 2 views of the right knee FINDINGS: Total joint arthroplasty with patellar resurfacing. A surgical drainage catheter is in place along with expected postoperative soft tissue swelling with deep tissue air. No acute fracture, dislocation or unexpected opaque foreign body. IMPRESSION: Total joint arthroplasty with expected postoperative changes. ACT 112: Negative or not required by law. The above report was generated using voice recognition software. It may contain grammatical, syntax or spelling errors. Electronically signed by: Dhiraj Rutherford M.D. 04/10/2023 12:17 PM Signed By: <Electronically signed by Martín Hawkins PA-C> 04/11/23 0656 <Electronically signed by Edwin Armstrong MD> 04/11/23 0711 Total Time Total Time Spent Total Time Spent (In Minutes): 5 Discharge Plan Discharge Items Patient Disposition: Home - Home Health Services Reason For Visit: Osteoarthritis KNee Right Discharge Diagnosis: Osteoarthritis right knee Activity: Per Instructions section Weightbearing Comment: WBAT with walker Non-emergency contact: Surgeon Call non-emergency contact if: you have any medication questions, your pain is not controlled, your temperature is above 101.5, your wound has increased redness and your wound has increased drainage Follow-up/Referrals: Mateo Dc DO [Surgeon] - ( follow-up with Dr. Dc or his PA in 2 weeks from the day of surgery for your first postoperative visit.) Javier Pearson MD [Primary Care Provider] - Diet: Regular Addtl Attending Provider Instructions: ACTIVITY RECOMMENDATIONS: SELF CARE INSTRUCTIONS AFTER TOTAL KNEE REPLACEMENT A. You may need to continue a physical therapy program after discharge from the hospital. There are several options available to you. Your doctor will assist you in selecting the best one for you. 1. An out-patient facility 2 to 3 times a week for therapy or home therapy. 2. Continue working on all exercises taught to you in the hospital. Your goals should be to increase bending of your knee to 90 degrees and beyond and to fully straighten your knee. B. You may progress at your own pace from walking with a walker or crutches to a cane; then to no assistive devices. C. Make walking a part of your daily routine. Be up as much as comfortable with rest periods throughout the day. Rest with leg elevation is very important. Use the ice wrap frequently for the first 3-4 weeks. D. There are no restrictions on activities. You may ride in a car, shop, participate in fishing worker and all social activities. E. Wear the long elastic stockings (SUSAN hose) 20 hours a day for 2 weeks after surgery. They can be removed several times a day for laundering and for a bath. F. You may shower, no tub baths until cleared by your doctor. SPECIAL CARE INSTRUCTIONS: VERY IMPORTANT TO READ AND REVIEW A. There are a few signs you need to watch for after you are home. Call [facility] if you notice any of the followin. Increased severe knee pain. Some pain is expected especially when you exercise. 2. Increased swelling in your leg or knee; pain or swelling of the calf muscle in either lower leg. 3. Any fluid drainage from the incision. 4. Shortness of breath or chest pain. B. Please call [facility] at if you have any concerns or questions about your operation or recovery. The doctor or his nurse will return your call promptly. C. You must take antibiotics before dental work, bladder, bowel or other surgery. Your doctor will provide you with a permanent care to carry describing this precaution. IMPORTANT: * REMEMBER TO TAKE ASPIRIN, 81 MG, TWICE DAILY FOR 4 WEEKS UNLESS OTHERWISE DIRECTED. THIS IS YOUR BLOOD THINNER. * HIGH RISK PATIENTS MAY BE PRESCRIBED A STRONGER BLOOD THINNER. THIS WILL BE PROVIDED AT DISCHARGE. * CALL IF INCREASED PAIN, REDNESS, DRAINAGE OR FEVER GREATER THAT 101. * WEAR SUSAN HOSE 20 HOURS PER DAY FOR 2 WEEKS. * RYANNE Dressing - This is a large suction dressing covering your incision. This will help pull any excess drainage from the wound and allow your incision to heal properly. You may shower with this if you can keep the unit outside of the shower. If any bleeding or leakage is noted please call your doctor's office. This will remain on your incision for 7 days and then should be removed. This can be done yourself or by the home nursing staff if applicable. The entire unit is disposable once removed. Once removed, keep incision clean and dry. If redness or drainage is noted, please call your surgeon. . *DERMABOND Prineo- This is a mesh tape dressing that is covered with glue. It should remain in place until the incision is properly healed, usually 10-14 days. This dressing is designed to naturally slough off. You may trim the excess mesh tape as it peels off. Incision may be briefly wet in a shower. Dry immediately by blotting with a clean, dry towel. Do not bath or swim until instructed by your doctor. Do not scratch, rub, or pick at the dressing. Do not apply any topical ointments or lotions until dressing is completely removed and/or instructed by your doctor. There may be a small piece of suture material at one end of your incision. Do not pull or trim this. If it is bothersome or catching on clothing, you may cover it with a band-aid. FOLLOW UP VISIT: If appointment is not already scheduled: Please call [facility] to make a follow-up appointment for 2 weeks after your surgery at . Stand-Alone Forms: [employer], Smoking Cessation Medications and DC Order Prescriptions: New celecoxib [Celebrex] 200 mg capsule 200 mg PO BID 30 Days Qty: 60 0RF aspirin 81 mg tablet,delayed release (DR/EC) 81 mg PO BID 30 Days Qty: 60 0RF acetaminophen 500 mg tablet 1,000 mg PO Q8 21 Days Qty: 126 0RF cefadroxil 500 mg capsule 500 mg PO BID 14 Days Qty: 28 0RF oxycodone 5 mg tablet 5 - 10 mg PO Q6H PRN (Reason: pain) Qty: 30 0RF Rx Instructions: ongoing therapy, supervising dr pati dc. max 6 tabs in 24 hours. date of surgery 04/10/23 Continued chlorthalidone 25 mg tablet 25 mg PO QAM gabapentin 300 mg capsule 900 mg PO QPM albuterol sulfate 90 mcg/actuation aerosol powdr breath activated 2 puffs INH Q6H PRN (Reason: copd) metoclopramide HCl [Reglan] 10 mg tablet 10 mg PO QDD tamsulosin 0.4 mg Capsule 0.4 mg PO UD PRN (Reason: Urinary Retention) epinephrine 0.3 mg/0.3 mL Auto-Injector 0.3 mg IM UD PRN (Reason: bee stings) cholecalciferol (vitamin D3) [Vitamin D3] 25 mcg (1,000 unit) Capsule 25 mcg PO QAM omeprazole 20 mg Tablet,Delayed Release (Dr/Ec) 20 mg PO QAM Discontinued tramadol 50 mg tablet 50 mg PO BID naproxen 500 mg tablet 500 mg PO BID Admission Data Admit Date/Time: 04/10/23 11:48 Attending Provider: Mateo Dc Admit Provider: Mateo Dc Primary Care Provider: Javier Pearson Other Providers: [facility],Hospital; [facility] Other Interventions: Discharge Summary Assessment (RN) Last Done: 04/11/23 11:49
== END 2023-04-11 12:45 | disposition home health service (06) ==
LOC: 3E 08:09 → ASU 08:09